=== PATIENT | female | born 1970 | race Caucasian/White ===

== ENCOUNTER 2016-05-23 23:22 | Observation (INO) | payer MEDICAID ==
[~2016-05-23 23:22] MED LIST: ACIDOPHILUS1 EAC3 PO; ASPIRIN EC81 MG PO; B COMPLEX1 EAC1 PO; CLARITIN10 M6 PO; EFFIENT10 MG PO; FENOFIBRATE54 M1 PO; FISH OIL 1,2001 EAC5 PO; ISOSORBIDE MONO60 M3 PO; L-ARGININE1000 M1 PO; L-LYSINE500 M2 PO; LIPITOR80 M1 PO; LOPERAMIDE2 M2 PO; LOPRESSOR50 M1 PO; METFORMIN HCL1000 M2 PO; MULTIVITAMINS1 EAC7 PO; NITROSTAT0.4 MG/TAB SL; NORCO 5-325 TA1 EACH PO; NORVASC2.5 M1 PO; OMEPRAZOLE20 M4 PO; ONDANSETRON HCL4 M2 PO; PROTONIX40 M2 PO; RANEXA1000 M1 PO; SERTRALINE HCL50 M4 PO; TRADJENTA5 M1 PO; ZOFRAN4 M2 PO
[2016-05-23] MEDS ORDERED: HYDROXYZINE PO (23:38)
[2016-05-24 00:17] LABS: BASO % 0.3 % (0-2); EOS % 1.2 % (0-7); EOSINOPHIL ABSOLUTE COUNT 0.1 tho/cmm (0.0-0.7); HCT-HEMATOCRIT 37.1 % (34.0-49.0); HGB-HEMOGLOBIN 12.2 gm/dl (12.0-15.5); IMMATURE GRANULOCYTES ABSOLUTE 0.04 tho/cmm (0-0.03); IMMATURE GRANULOCYTES PERCENT 0.4 % (0-0.3); LYMPH % 33.9 % (20-45); LYMPH ABSOLUTE COUNT 3.4 tho/cmm (0.8-4.5); MCH (MEAN CORPUSCULAR HGB) 27.9 pg (28.0-32.0); MCHC MEAN CORPUSCULAR HGB CONC 32.9 % (32.0-36.0); MCV (MEAN CELL VOLUME) 84.9 fl (82.0-96.0); MEAN PLATELET VOLUME 9.7 cmc (9.4-12.4); MONO % 4.8 % (0-12); MONOCYTE ABSOLUTE COUNT 0.5 tho/cmm (0.0-1.2); NEUTROPHILS % 59.4 % (40-80); PLATELET COUNT 313 tho/cmm (150-450); RED BLOOD COUNT 4.37 mil/cmm (4.00-5.20); RED CELL DISTRIBUTION WIDTH 13.6 % (12.4-16.4); WHITE BLOOD COUNT 10.1 tho/cmm (4.0-10.0)
[2016-05-24 00:45] LABS: ALBUMIN 3.8 g/dl (3.5-5.0); ALKALINE PHOSPHATASE 70 U/L (33-138); ALT/SGPT 50 U/L (12-78); ANION GAP 12 mmol/L (0-20); AST/SGOT 35 U/L (10-40); BILIRUBIN,TOTAL 0.4 mg/dl (0-1.5); BLOOD UREA NITROGEN 15 mg/dl (6-24); CALCIUM 8.6 mg/dl (8.5-10.5); CARBON DIOXIDE-VENOUS 29 mmol/L (22-32); CHLORIDE 104 mmol/l (96-110); CREATININE 0.93 mg/dl (0.50-1.10); GLUCOSE 151 mg/dL (70-110); SODIUM 141 mmol/L (135-145); eGFR VALUE FOR BLACK 87 mL/Min
[2016-05-24 05:42] LABS: CHOLESTEROL 148 mg/dl (120-200); HDL CHOLESTEROL 26 mg/dl (40-60); VLDL 85 mg/dl (0-30)
[2016-05-24 05:43] LABS: TRIGLYCERIDES 423 mg/dl (<149)
== END 2016-05-24 13:25 ==
LOC: EDMED 23:22 → EMR2 05-24 00:55 → PCUB 05-24 01:55
PROVIDERS: Family Medicine; Nurse Practitioner Family; ADMIT Internal Medicine
DX: I25.110 Atherosclerotic heart disease of native coronary artery with unstable angina pectoris (principal); I10 Essential (primary) hypertension; E78.5 Hyperlipidemia, unspecified; E11.9 Type 2 diabetes mellitus without complications; Z88.0 Allergy status to penicillin; Z88.1 Allergy status to other antibiotic agents; Z79.82 Long term (current) use of aspirin; Z79.899 Other long term (current) drug therapy; Z98.890 Other specified postprocedural states; Z82.49 Family history of ischemic heart disease and other diseases of the circulatory system; Z95.5 Presence of coronary angioplasty implant and graft
CPT/HCPCS: G0378; J2270

== ENCOUNTER 2016-06-15 22:36 | Emergency (ER) | payer MEDICAID ==
[~2016-06-15 22:36] MED LIST changes: +HYDROXYZINE PO
[2016-06-15 23:22] LABS: BASO % 0.2 % (0-2); EOS % 1.5 % (0-7); EOSINOPHIL ABSOLUTE COUNT 0.2 tho/cmm (0.0-0.7); HCT-HEMATOCRIT 37.5 % (34.0-49.0); HGB-HEMOGLOBIN 12.6 gm/dl (12.0-15.5); IMMATURE GRANULOCYTES ABSOLUTE 0.03 tho/cmm (0-0.03); IMMATURE GRANULOCYTES PERCENT 0.2 % (0-0.3); LYMPH % 35.1 % (20-45); LYMPH ABSOLUTE COUNT 4.4 tho/cmm (0.8-4.5); MCH (MEAN CORPUSCULAR HGB) 28.1 pg (28.0-32.0); MCHC MEAN CORPUSCULAR HGB CONC 33.6 % (32.0-36.0); MCV (MEAN CELL VOLUME) 83.7 fl (82.0-96.0); MEAN PLATELET VOLUME 9.6 cmc (9.4-12.4); MONO % 5.9 % (0-12); MONOCYTE ABSOLUTE COUNT 0.7 tho/cmm (0.0-1.2); NEUTROPHIL ABSOLUTE COUNT 7.1 tho/cmm (1.6-8.0); NEUTROPHIL-AUTOMATED 7.1 tho/cmm (1.6-8.0); NEUTROPHILS % 57.1 % (40-80); PLATELET COUNT 311 tho/cmm (150-450); RED BLOOD COUNT 4.48 mil/cmm (4.00-5.20); RED CELL DISTRIBUTION WIDTH 13.7 % (12.4-16.4); WHITE BLOOD COUNT 12.5 tho/cmm (4.0-10.0)
[2016-06-15 23:43] LABS: ALB/GLOB RATIO 0.9 (0.8-2.0); ALBUMIN 3.6 g/dl (3.5-5.0); ALKALINE PHOSPHATASE 67 U/L (33-138); ALT/SGPT 57 U/L (12-78); ANION GAP 14 mmol/L (0-20); AST/SGOT 46 U/L (10-40); BILIRUBIN,TOTAL 0.3 mg/dl (0-1.5); BLOOD UREA NITROGEN 10 mg/dl (6-24); CALCIUM 8.7 mg/dl (8.5-10.5); CARBON DIOXIDE-VENOUS 24 mmol/L (22-32); CHLORIDE 104 mmol/l (96-110); CREATININE 0.83 mg/dl (0.50-1.10); GLUCOSE 150 mg/dL (70-110); LIPASE 324 U/L (73-393); MAGNESIUM 1.8 mg/dl (1.3-2.6); POTASSIUM 3.9 mmol/L (3.7-5.1); SODIUM 138 mmol/L (135-145); eGFR VALUE FOR BLACK >90 mL/Min
[2016-06-15 23:51] LABS: INR 0.9 INR (0.9-1.1); PROTHROMBIN TIME 10.5 SECONDS (9.0-13.6)
[2016-06-16] MEDS ORDERED: NAPROSYN500 M1 PO (02:00)
[2016-06-16] MEDS ORDERED: CYCLOBENZAPRINE5 M1 PO (02:00)
== END 2016-06-16 02:13 ==
LOC: EDMED 22:36
PROVIDERS: Family Medicine
DX: R07.89 Other chest pain (principal); M62.838 Other muscle spasm; I11.9 Hypertensive heart disease without heart failure; I25.10 Atherosclerotic heart disease of native coronary artery without angina pectoris; E78.5 Hyperlipidemia, unspecified; Z90.710 Acquired absence of both cervix and uterus; Z95.5 Presence of coronary angioplasty implant and graft; Z95.1 Presence of aortocoronary bypass graft; Z90.89 Acquired absence of other organs; Z98.890 Other specified postprocedural states; Z79.82 Long term (current) use of aspirin; Z79.899 Other long term (current) drug therapy
CPT/HCPCS: J1885; J2360

== ENCOUNTER 2016-07-07 03:14 | Emergency (ER) | payer MEDICAID ==
[~2016-07-07 03:14] MED LIST changes: +CYCLOBENZAPRINE5 M1 PO; +NAPROSYN500 M1 PO
[2016-07-07] MEDS ORDERED: HYDROXYZINE PAM25 M2 PO (03:38)
[2016-07-07] MEDS ORDERED: OXYCONTIN20 M2 PO (03:39)
[2016-07-07 03:54] LABS: BASO % 0.2 % (0-2); EOS % 1.5 % (0-7); EOSINOPHIL ABSOLUTE COUNT 0.2 tho/cmm (0.0-0.7); HCT-HEMATOCRIT 40.5 % (34.0-49.0); HGB-HEMOGLOBIN 13.4 gm/dl (12.0-15.5); IMMATURE GRANULOCYTES ABSOLUTE 0.02 tho/cmm (0-0.03); IMMATURE GRANULOCYTES PERCENT 0.2 % (0-0.3); LYMPH % 43.7 % (20-45); LYMPH ABSOLUTE COUNT 4.5 tho/cmm (0.8-4.5); MCH (MEAN CORPUSCULAR HGB) 27.8 pg (28.0-32.0); MCHC MEAN CORPUSCULAR HGB CONC 33.1 % (32.0-36.0); MONO % 5.9 % (0-12); MONOCYTE ABSOLUTE COUNT 0.6 tho/cmm (0.0-1.2); NEUTROPHILS % 48.5 % (40-80); PLATELET COUNT 306 tho/cmm (150-450); RED BLOOD COUNT 4.82 mil/cmm (4.00-5.20); RED CELL DISTRIBUTION WIDTH 13.8 % (12.4-16.4); WHITE BLOOD COUNT 10.2 tho/cmm (4.0-10.0)
[2016-07-07 04:06] LABS: ALB/GLOB RATIO 0.9 (0.8-2.0); ALBUMIN 3.9 g/dl (3.5-5.0); ALKALINE PHOSPHATASE 71 U/L (33-138); ALT/SGPT 43 U/L (12-78); ANION GAP 13 mmol/L (0-20); AST/SGOT 24 U/L (10-40); BILIRUBIN,TOTAL 0.4 mg/dl (0-1.5); BLOOD UREA NITROGEN 21 mg/dl (6-24); CALCIUM 9.2 mg/dl (8.5-10.5); CARBON DIOXIDE-VENOUS 29 mmol/L (22-32); CHLORIDE 103 mmol/l (96-110); CREATININE 0.92 mg/dl (0.50-1.10); GLUCOSE 192 mg/dL (70-110); POTASSIUM 3.7 mmol/L (3.7-5.1); SODIUM 141 mmol/L (135-145); eGFR VALUE FOR BLACK 88 mL/Min
[2016-07-07 04:20] LABS: URINE BILIRUBIN NEGATIVE (NEG); URINE BLOOD NEGATIVE (NEG); URINE GLUCOSE (UA) NEGATIVE (NEG); URINE KETONE NEGATIVE (NEG); URINE LEUKOCYTE ESTERASE POSITIVE (NEG); URINE NITRITE NEGATIVE (NEG); URINE PROTEIN MODERATE (NEG); URINE SPECIFIC GRAVITY 1.025 (1.003-1.030)
[2016-07-07 04:28] LABS: URINE APPEARANCE HAZY; URINE COLOR YELLOW
[2016-07-07 04:30] LABS: URINE BACTERIA 4+; URINE EPITHELIAL CELLS 15-20 /[HPF] (0-10); URINE MUCUS 1+; URINE RBC 0 /[HPF] (0-5)
[2016-07-07] MEDS ORDERED: CIPRO500 M2 PO (04:39)
[2016-07-07] MEDS ORDERED: DIFLUCAN100 M1 PO (04:39)
[2016-07-07] MEDS ORDERED: HYDROCODON-ACE1 EA16 PO (04:39)
== END 2016-07-07 04:52 ==
LOC: EDMED 03:14
PROVIDERS: Emergency Medicine Emergency Medical Services
DX: N39.0 Urinary tract infection, site not specified (principal); E11.9 Type 2 diabetes mellitus without complications; I10 Essential (primary) hypertension; E78.5 Hyperlipidemia, unspecified; K21.9 Gastro-esophageal reflux disease without esophagitis; F32.9 Major depressive disorder, single episode, unspecified; Z87.442 Personal history of urinary calculi; Z79.82 Long term (current) use of aspirin; Z79.899 Other long term (current) drug therapy
CPT/HCPCS: J1885; J2270; J2405; J7030

== ENCOUNTER 2016-08-14 17:47 | Inpatient (IN) | payer MEDICAID ==
[~2016-08-14 17:47] MED LIST changes: +CIPRO500 M2 PO; +DIFLUCAN100 M1 PO; +HYDROCODON-ACE1 EA16 PO; +HYDROXYZINE PAM25 M2 PO; +OXYCONTIN20 M2 PO
[2016-08-14 18:28] LABS: BASO % 0.2 % (0-2); EOSINOPHIL ABSOLUTE COUNT 0.1 tho/cmm (0.0-0.7); HCT-HEMATOCRIT 36.4 % (34.0-49.0); IMMATURE GRANULOCYTES ABSOLUTE 0.02 tho/cmm (0-0.03); IMMATURE GRANULOCYTES PERCENT 0.2 % (0-0.3); LYMPH % 31.2 % (20-45); LYMPH ABSOLUTE COUNT 3.2 tho/cmm (0.8-4.5); MCH (MEAN CORPUSCULAR HGB) 27.5 pg (28.0-32.0); MCV (MEAN CELL VOLUME) 83.5 fl (82.0-96.0); MEAN PLATELET VOLUME 9.6 cmc (9.4-12.4); MONO % 5.2 % (0-12); MONOCYTE ABSOLUTE COUNT 0.5 tho/cmm (0.0-1.2); NEUTROPHIL ABSOLUTE COUNT 6.4 tho/cmm (1.6-8.0); NEUTROPHIL-AUTOMATED 6.4 tho/cmm (1.6-8.0); NEUTROPHILS % 62.2 % (40-80); PLATELET COUNT 311 tho/cmm (150-450); RED BLOOD COUNT 4.36 mil/cmm (4.00-5.20); RED CELL DISTRIBUTION WIDTH 13.9 % (12.4-16.4); WHITE BLOOD COUNT 10.4 tho/cmm (4.0-10.0)
[2016-08-14 18:42] LABS: ALB/GLOB RATIO 0.9 (0.8-2.0); ALBUMIN 3.5 g/dl (3.5-5.0); ALKALINE PHOSPHATASE 64 U/L (33-138); ALT/SGPT 41 U/L (12-78); ANION GAP 16 mmol/L (0-20); AST/SGOT 27 U/L (10-40); BILIRUBIN,TOTAL 0.4 mg/dl (0-1.5); BLOOD UREA NITROGEN 14 mg/dl (6-24); CALCIUM 8.4 mg/dl (8.5-10.5); CARBON DIOXIDE-VENOUS 24 mmol/L (22-32); CHLORIDE 105 mmol/l (96-110); GLUCOSE 175 mg/dL (70-110); LIPASE 214 U/L (73-393); POTASSIUM 3.8 mmol/L (3.7-5.1); SODIUM 141 mmol/L (135-145); eGFR VALUE FOR BLACK >90 mL/Min
[2016-08-14 18:44] LABS: BILIRUBIN,DIRECT 0.1 mg/dl (0.0-0.3); BILIRUBIN,INDIRECT 0.3 mg/dL (0.0-1.0)
== END 2016-08-16 17:55 | DRG 313 ==
LOC: EDMED 17:47 → EMR2 19:16 → PCUB 22:19
PROVIDERS: Emergency Medicine; ADMIT Internal Medicine Cardiovascular Disease
DX: R07.9 Chest pain, unspecified (principal); I25.10 Atherosclerotic heart disease of native coronary artery without angina pectoris; I10 Essential (primary) hypertension; R10.9 Unspecified abdominal pain; E11.9 Type 2 diabetes mellitus without complications; E78.5 Hyperlipidemia, unspecified
CPT/HCPCS: A9537; C8929; C9113; J2270

== ENCOUNTER 2016-09-01 03:37 | Emergency (ER) | payer MEDICAID ==
[2016-09-01] MEDS ORDERED: LYSINE500 M3 PO (03:49)
[2016-09-01] MEDS ORDERED: [UNRECOGNIZED DRUG - CODE] PO (04:01)
[2016-09-01 04:16] LABS: KETONE-BETA (WHOLE BLOOD) 0.2 mmol/L (0.0-0.6)
[2016-09-01] MEDS ORDERED: VISTARIL25 M1 PO (04:18)
[2016-09-01] MEDS ORDERED: CYCLOBENZAPRINE5 M1 PO (04:18)
[2016-09-01 04:22] LABS: BASO % 0.3 % (0-2); EOS % 1.3 % (0-7); EOSINOPHIL ABSOLUTE COUNT 0.2 tho/cmm (0.0-0.7); HCT-HEMATOCRIT 37.2 % (34.0-49.0); HGB-HEMOGLOBIN 12.4 gm/dl (12.0-15.5); IMMATURE GRANULOCYTES ABSOLUTE 0.03 tho/cmm (0-0.03); IMMATURE GRANULOCYTES PERCENT 0.3 % (0-0.3); LYMPH % 38.3 % (20-45); LYMPH ABSOLUTE COUNT 4.3 tho/cmm (0.8-4.5); MCH (MEAN CORPUSCULAR HGB) 27.9 pg (28.0-32.0); MCHC MEAN CORPUSCULAR HGB CONC 33.3 % (32.0-36.0); MCV (MEAN CELL VOLUME) 83.6 fl (82.0-96.0); MEAN PLATELET VOLUME 9.7 cmc (9.4-12.4); MONO % 6.2 % (0-12); MONOCYTE ABSOLUTE COUNT 0.7 tho/cmm (0.0-1.2); NEUTROPHIL ABSOLUTE COUNT 6.1 tho/cmm (1.6-8.0); NEUTROPHIL-AUTOMATED 6.1 tho/cmm (1.6-8.0); NEUTROPHILS % 53.6 % (40-80); PLATELET COUNT 268 tho/cmm (150-450); RED BLOOD COUNT 4.45 mil/cmm (4.00-5.20); WHITE BLOOD COUNT 11.3 tho/cmm (4.0-10.0)
[2016-09-01 04:37] LABS: ALB/GLOB RATIO 0.8 (0.8-2.0); ALBUMIN 3.4 g/dl (3.5-5.0); ALKALINE PHOSPHATASE 66 U/L (33-138); ALT/SGPT 43 U/L (12-78); ANION GAP 14 mmol/L (0-20); AST/SGOT 23 U/L (10-40); BILIRUBIN,TOTAL 0.4 mg/dl (0-1.5); BLOOD UREA NITROGEN 17 mg/dl (6-24); CALCIUM 8.9 mg/dl (8.5-10.5); CARBON DIOXIDE-VENOUS 26 mmol/L (22-32); CHLORIDE 100 mmol/l (96-110); CREATININE 0.84 mg/dl (0.50-1.10); GLUCOSE 199 mg/dL (70-110); LIPASE 274 U/L (73-393); POTASSIUM 3.9 mmol/L (3.7-5.1); SODIUM 136 mmol/L (135-145); eGFR VALUE FOR BLACK >90 mL/Min
== END 2016-09-01 07:25 ==
LOC: EDMED 03:37
PROVIDERS: Emergency Medicine
DX: R07.89 Other chest pain (principal); R10.9 Unspecified abdominal pain; G89.29 Other chronic pain; E66.01 Morbid (severe) obesity due to excess calories; I25.10 Atherosclerotic heart disease of native coronary artery without angina pectoris; I11.9 Hypertensive heart disease without heart failure; E11.9 Type 2 diabetes mellitus without complications; Z95.1 Presence of aortocoronary bypass graft; Z95.5 Presence of coronary angioplasty implant and graft; Z90.710 Acquired absence of both cervix and uterus; Z79.82 Long term (current) use of aspirin; Z79.899 Other long term (current) drug therapy
CPT/HCPCS: J1885; J2270; J2405